=== PATIENT | male | born 1980 | race Two or more races ===

== ENCOUNTER 2021-03-07 09:08 | Emergency (ER) | payer SELFPAY ==
[~2021-03-07] VITALS: Ht 170.2 cm; Wt 143.8 kg
[2021-03-07 13:18] VITALS: BP 151/96
== END 2021-03-07 12:29 | disposition home or self-care (01) ==
LOC: ER 09:08
DX: S61.431A Puncture wound without foreign body of right hand, initial encounter (principal); W54.0XXA Bitten by dog, initial encounter; Y93.89 Activity, other specified; Y92.89 Other specified places as the place of occurrence of the external cause; Y99.8 Other external cause status